=== PATIENT | male | born 1955 | race Caucasian/White ===

== ENCOUNTER → 2018-09-02 | Outpatient (CLI) | payer MEDICARE, SELFPAY ==
[~2018-09-02] VITALS: Ht 152.4 cm; Wt 89.0 kg
[~2018-09-02] MED LIST: APIX5TAB PO; ASPI81 PO; DULO30CA2 PO; GABA-531 PO; METF-960 PO; METO75TA PO; NYST15PO4 TP; SIMV-261 PO; TEMA15CA PO; THEO400T3 PO
[2018-09-02 10:53] VITALS: BP 125/81
== END | disposition home or self-care (01) ==
LOC: HBOWC 10:23
PROVIDERS: ATTEND Nurse Practitioner Adult Health
DX: E11.622 Type 2 diabetes mellitus with other skin ulcer (principal); L89.323 Pressure ulcer of left buttock, stage 3; L98.411 Non-pressure chronic ulcer of buttock limited to breakdown of skin; G82.20 Paraplegia, unspecified; I48.91 Unspecified atrial fibrillation; J44.9 Chronic obstructive pulmonary disease, unspecified; E78.5 Hyperlipidemia, unspecified; Z89.512 Acquired absence of left leg below knee; Z89.511 Acquired absence of right leg below knee

== ENCOUNTER → 2018-09-09 | Outpatient (CLI) | payer MEDICARE ==
[2018-09-09 10:45] VITALS: BP 140/84
== END | disposition home or self-care (01) ==
LOC: HBOWC 10:39
PROVIDERS: ATTEND Nurse Practitioner Adult Health
DX: E11.622 Type 2 diabetes mellitus with other skin ulcer (principal); L89.323 Pressure ulcer of left buttock, stage 3; L98.411 Non-pressure chronic ulcer of buttock limited to breakdown of skin; G82.20 Paraplegia, unspecified; I48.91 Unspecified atrial fibrillation; J44.9 Chronic obstructive pulmonary disease, unspecified; E78.5 Hyperlipidemia, unspecified; Z89.512 Acquired absence of left leg below knee; Z89.511 Acquired absence of right leg below knee

== ENCOUNTER → 2018-09-16 | Outpatient (CLI) | payer MEDICARE ==
[2018-09-16 11:15] VITALS: BP 119/75
== END | disposition home or self-care (01) ==
LOC: HBOWC 10:47
PROVIDERS: ATTEND Nurse Practitioner Adult Health
DX: E11.622 Type 2 diabetes mellitus with other skin ulcer (principal); L89.323 Pressure ulcer of left buttock, stage 3; L98.411 Non-pressure chronic ulcer of buttock limited to breakdown of skin; G82.20 Paraplegia, unspecified; I48.91 Unspecified atrial fibrillation; J44.9 Chronic obstructive pulmonary disease, unspecified; E78.5 Hyperlipidemia, unspecified; Z89.512 Acquired absence of left leg below knee; Z89.511 Acquired absence of right leg below knee

== ENCOUNTER → 2018-10-07 | Outpatient (CLI) | payer MEDICARE ==
[2018-10-07 11:49] VITALS: BP 98/58
== END | disposition home or self-care (01) ==
LOC: HBOWC 10:17
PROVIDERS: ATTEND Nurse Practitioner Adult Health
DX: E11.622 Type 2 diabetes mellitus with other skin ulcer (principal); L89.323 Pressure ulcer of left buttock, stage 3; L98.411 Non-pressure chronic ulcer of buttock limited to breakdown of skin; G82.20 Paraplegia, unspecified; I48.91 Unspecified atrial fibrillation; J44.9 Chronic obstructive pulmonary disease, unspecified; E78.5 Hyperlipidemia, unspecified; Z89.512 Acquired absence of left leg below knee; Z89.511 Acquired absence of right leg below knee